=== PATIENT | male | born 2000 | race African-American/Black ===

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

== ENCOUNTER 2020-09-21 23:29 | Emergency (ER) | payer OTHER ==
[~2020-09-21] VITALS: Ht 182.9 cm; Wt 120.0 kg
[~2020-09-21 23:29] MED LIST: ALBU2.5V8 IH; NAPR-514 PO
[2020-09-21 23:40] VITALS: BP 151/89
--- NOTE | 2020-09-22 00:20 | RAD ---
XR CHEST 1V INDICATION: soa. COMPARISON STUDY: None. FINDINGS: Lungs: Normal lung volume. No pulmonary mass or consolidation. The tracheobronchial tree and hilar st ructures are normal. Pleura: No pleural effusion or pneumothorax. Heart and Mediastinum: The cardiomediastinal silhouette is normal. The great vessels of the thorax ar e normal. Bones and Soft Tissues: The bones and soft tissues are within normal limits. IMPRESSION: No acute cardiopulmonary process. Electronically signed by: Jon Nguyen MD (09/22/2020 12:17 AM) [facility]
[2020-09-22] MEDS ORDERED: PRED20TA PO (00:27)
[2020-09-22] MEDS ORDERED: ALBU2.5V8 IH (00:27)
--- NOTE | 2020-09-22 00:27 | PHYS DOC ---
Past Medical History Past Medical History: Asthma Past Surgical History: No Surgical History Smoking Status: Never Smoker Alcohol Use: None Drug Use: None General Adult EDM: Chief Complaint: SHORTNESS OF BREATH HPI: HPI: Patient is a 20 year old male who presented to ER due to trouble breathing. Patient has history of asthma, he had no albuterol inhaler at home. Patient had nonproductive cough. Patient felt his lung was closing on him. Patient denies any fever, no chest pain. Review of Systems: Review of Systems: Constitutional: Denies fever or chills. [] Eyes: Denies change in visual acuity. [] HENT: Denies nasal congestion or sore throat. [] Respiratory: Positive for cough and trouble breathing Cardiovascular: Denies chest pain or edema. [] GI: Denies abdominal pain, nausea, vomiting, bloody stools or diarrhea. [] : Denies dysuria. [] Musculoskeletal: Denies back pain or joint pain. [] Integument: Denies rash. [] Neurologic: Denies headache, focal weakness or sensory changes. [] Endocrine: Denies polyuria or polydipsia. [] Lymphatic: Denies swollen glands. [] Psychiatric: Denies depression or anxiety. [] Heart Score: C/O Chest Pain: N/A Risk Factors: Risk Factors: DM, Current or recent (<one month) smoker, HTN, HLP, family history of CAD, obesity. Risk Scores: Score 0 - 3: 2.5% MACE over next 6 weeks - Discharge Home Score 4 - 6: 20.3% MACE over next 6 weeks - Admit for Clinical Observation Score 7 - 10: 72.7% MACE over next 6 weeks - Early Invasive Strategies Current Medications: Current Medications Medications (Trade) Dose Ordered Sig/Carlos Start Time Stop Time Status Last Admin Dose Admin Albuterol/ Ipratropium (Duoneb) 3 ml 1X ONCE 09/22/20 00:30 09/22/20 00:31 09/22/20 00:15 3 ML Prednisone (Prednisone) 60 mg 1X ONCE 09/22/20 00:30 09/22/20 00:31 Allergies: Allergies: Allergies Coded Allergies Type Severity Reaction Last Updated Verified No Known Drug Allergies 02/18/19 No Physical Exam: PE: Constitutional: Well developed, well nourished, no acute distress, non-toxic appearance. [] HENT: Normocephalic, atraumatic, bilateral external ears normal, oropharynx moist, no oral exudates, nose normal. [] Eyes: PERRLA, EOMI, conjunctiva normal, no discharge. [] Neck: Normal range of motion, no tenderness, supple, no stridor. [] Cardiovascular:Heart rate regular rhythm, no murmur [] Lungs & Thorax: Bilateral breath with mild expiratory wheezing no respiratory distress Abdomen: Bowel sounds normal, soft, no tenderness, no masses, no pulsatile masses. [] Skin: Warm, dry, no erythema, no rash. [] Back: No tenderness, no CVA tenderness. [] Extremities: No tenderness, no cyanosis, no clubbing, ROM intact, no edema. [] Neurologic: Alert and oriented X 3, normal motor function, normal sensory function, no focal deficits noted. [] Psychologic: Affect normal, judgement normal, mood normal. [] Current Patient Data: Vital Signs: Vital Signs Date Time Temp Pulse Resp B/P (MAP) Pulse Ox O2 Delivery O2 Flow Rate FiO2 09/22/20 00:16 99 Room Air 09/21/20 23:40 98.5 84 14 151/89 (109 98.5 EKG: EKG: [] Radiology/Procedures: Radiology/Procedures: [][facility] [address] [place] [address] IMAGING REPORT Signed PATIENT: SUMI MORA ACCOUNT: [id number] : 2000 LOCATION: ER AGE: 20 SEX: M EXAM STATUS: PRE ER ORD. PHYSICIAN: EVELIN SIMENTAL DO REASON: soa PROCEDURE: CHEST AP ONLY XR CHEST 1V INDICATION: soa. COMPARISON STUDY: None. FINDINGS: Lungs: Normal lung volume. No pulmonary mass or consolidation. The tracheobronchial tree and hilar structures are normal. Pleura: No pleural effusion or pneumothorax. Heart and Mediastinum: The cardiomediastinal silhouette is normal. The great vessels of the thorax are normal. Bones and Soft Tissues: The bones and soft tissues are within normal limits. IMPRESSION: No acute cardiopulmonary process. Electronically signed by: Malinda Peterson MD (09/22/2020 12:17 AM) [facility] DICTATED and SIGNED BY: MALINDA PETERSON MD DATE: 09/22/20 [id number] 0 Course & Med Decision Making: Course & Med Decision Making Pertinent Labs and Imaging studies reviewed. (See chart for details) Patient present to ER due to trouble breathing, patient HAS history of asthma, chest x-ray did not show any evidence of infection. Patient was given nebulizer treatment in the ER, he felt much better. Patient will be discharged home. Dragon Disclaimer: Ariisto Disclaimer: This electronic medical record was generated, in whole or in part, using a voice recognition dictation system. Departure Departure Impression: Primary Impression: Shortness of breath Disposition: 01 HOME / SELF CARE / HOMELESS Condition: IMPROVED Referrals: NO PCP (PCP) Please follow up with [facility] this week. [address], [address] [place] [address] Phone number: [phone] Patient Instructions: Shortness of Breath Additional Instructions: Thank you for visiting our Emergency Department. We appreciate you trusting us with your care. If any additional problems come up don't hesitate to return to visit us. Please follow up with your primary care provider so they can plan additional care if needed and know about the problem that you had. If symptoms worsen come back to the Emergency Department. Any concerning symptoms that start such as chest pain, shortness of air, weakness or numbness on one side of the body, running high fevers or any other concerning symptoms return to the ER. Scripts Prednisone (PREDNISONE) 20 Mg Tablet 1 TAB PO DAILY, #7 TAB Prov: EVELIN SIMENTAL DO 09/22/20 Albuterol Sulfate (PROAIR HFA INHALER) 8.5 Gm Hfa.aer.ad 2 PUFF IH PRN Q4-6HRS PRN for wheezing for 21 Days, #1 INHALER 0 Refills Prov: EVELIN SIMENTAL DO 09/22/20 EVELIN SIMENTAL DO Sep 22, 2020 00:27
[2020-09-22] MEDS ORDERED: IPRATRPIUM/ALBUTEROL 0.5/2.5MG 3 ML NEBU. NEB ONE (00:30)
[2020-09-22] MEDS ORDERED: predniSONE 20 MG TABLET PO ONE (00:30)
== END 2020-09-22 01:10 | disposition home or self-care (01) ==
LOC: ER 23:29
DX: R06.02 Shortness of breath (principal); R05 Cough; J45.909 Unspecified asthma, uncomplicated
CPT/HCPCS: 71045; 94640; 99283; J7512